=== PATIENT | male | born 1980 | race Caucasian/White ===

== ENCOUNTER 2020-11-26 13:44 | Inpatient (IN) | payer OTHER ==
[~2020-11-26] VITALS: Ht 188 cm; Wt 112.1 kg
[2020-11-26 13:53] VITALS: BP 167/110
[2020-11-26] MEDS ORDERED: KLONOPIN1 MG (13:55)
[2020-11-26] MEDS ORDERED: GRALISE600 MG PO (13:55)
[2020-11-26 16:05] LABS: HEMATOCRIT 40.7 % (42.0-52.0); HEMOGLOBIN 14.2 gm/dL (14.0-18.0); MCHC 34.9 g/dL (28.0-37.0); MCV 88.7 fL (80.0-100.0); MPV 6.8 fl. (7.2-11.1); NUCLEATED RBCS 0 /100WBC; PLATELET COUNT* 206 thou/uL (150-400); RBC 4.59 mil/uL (4.50-6.00); RDW-CV 13.4 % (10.5-14.5); WBC 16.8 thou/uL (4.0-11.0)
[2020-11-26 16:12] LABS: CALCIUM 8.8 mg/dL (8.5-10.1); CREATININE 0.9 mg/dL (0.6-1.3); POTASSIUM 3.1 mmol/L (3.5-5.1)
[2020-11-26 16:16] LABS: ALBUMIN 3.7 g/dL (3.4-5.0)
[2020-11-26 16:36] LABS: ABSOLUTE LYMPHOCYTES 1.5 thou/uL (0.8-5.3); ABSOLUTE MONOCYTES 0.7 thou/uL (0.0-1.2); ABSOLUTE NEUTROPHILS 14.6 thou/uL (1.6-8.1); PLATELET ESTIMATE ADEQUATE
[2020-11-26 19:10] LABS: CALCIUM 8.3 mg/dL (8.5-10.1); POTASSIUM 3.3 mmol/L (3.5-5.1)
[2020-11-26 19:14] LABS: MAGNESIUM 2.1 mg/dL (1.8-2.4); PHOSPHORUS* 2.5 mg/dL (2.5-4.9)
[2020-11-26 19:27] LABS: AMP/METHAMP Negative (Negative); BARBITURATES Negative (Negative); BENZODIAZEPINES Negative (Negative); COCAINE Negative (Negative); METHADONE Negative (Negative); OPIATES Negative (Negative); PCP Negative (Negative); THC POSITIVE (Negative)
[2020-11-26 19:49] VITALS: BP 141/70
[2020-11-26 20:00] VITALS: BP 156/80
--- NOTE | 2020-11-26 20:00 | NUR ---
RECEIVED REPORT FROM ER AND TO ROOM. LT FOREARM, WRIST AND HAND RED, EDEMATOUS AND PAINFUL. UNABLE TO MAKE A FIST. STRONG RADIAL PULSE AND CAPILLARY REFILL. ENCOURAGED TO ELEVATE. IV FLUIDS INFUSING. ORIENTED TO ROOM AND CALL LIGHT. SEE ADMISSION ASSESSMENT AND HX.
[2020-11-27 04:55] LABS: ABSOLUTE BASOPHILS 0.1 thou/uL (0.0-0.2); ABSOLUTE EOSINOPHILS 0.1 thou/uL (0.0-0.7); ABSOLUTE LYMPHOCYTES 1.7 thou/uL (0.8-5.3); ABSOLUTE MONOCYTES 0.9 thou/uL (0.0-1.2); BASOPHILS 0.7 %; EOSINOPHILS 0.4 %; HEMATOCRIT 36.6 % (42.0-52.0); HEMOGLOBIN 12.5 gm/dL (14.0-18.0); LYMPHOCYTES 12.3 %; MCH 30.7 pg (26.0-34.0); MCHC 34.2 g/dL (28.0-37.0); MCV 89.6 fL (80.0-100.0); MONOCYTES 6.7 %; MPV 6.8 fl. (7.2-11.1); NUCLEATED RBCS 0 /100WBC; PLATELET COUNT* 187 thou/uL (150-400); POLYS 79.9 %; RBC 4.09 mil/uL (4.50-6.00); RDW-CV 13.8 % (10.5-14.5); WBC 13.8 thou/uL (4.0-11.0)
[2020-11-27 05:03] LABS: CALCIUM 7.9 mg/dL (8.5-10.1); CREATININE 0.8 mg/dL (0.6-1.3); POTASSIUM 3.6 mmol/L (3.5-5.1)
--- NOTE | 2020-11-27 05:53 | NUR ---
AWAKE MOST OF NIGHT. PAIN INTO LT ARM REMAINS BUT TOLERABLE. PAIN MEDS GIVEN WITH LT ARM ELEVATED. PT DRINKING LG AMT OF WATER. INDEPENDENT BRP WITH STEADY GAIT. HS GOALS OF REST AND SAFETY ACHIEVED.
[2020-11-27 08:00] VITALS: BP 131/86
--- NOTE | 2020-11-27 10:03 | NUR ---
CM ASSESSMENT: PT A&O, INDEPENDENT WITH ADL'S, ACTIVE, AND WORKS [employer]. PT USES 0 DME. REVIEW OF PT'S CHART INFORMS THAT THE PT IS UNINSURED. PT CONFIRMS THIS. CM PROVIDED PT WITH COMMUNITY RESOURCE LIST AND INFO FOR [facility] AND [facility]. CM WILL REMAIN AVAILABLE TO ASSIST AND FOLLOW NEEDED.
[2020-11-27 16:00] VITALS: BP 181/115
[2020-11-27 19:50] VITALS: BP 144/95
--- NOTE | 2020-11-27 19:50 | NUR ---
PT RESTING ON BED UA SENT TO LAB FOR TEST. VSS AFEBRILE. BP RUNS A LITTLE ELEVATED. PT STATES HE FEEL GOOD NO HEADACHES, OR VISION CHANGES. PT UP AMBULATORY TO THE BATHROOM. SWELLING IN LEFT ARM IS DOWN A LITTLE BIT. WILL CONTINUE TO MONITOR PLAN OF CARE.
--- NOTE | 2020-11-28 04:38 | NUR ---
PT SLEPT MOST OF SHIFT. ASSESSMENT DOCUMENTED. MEDS GIVEN PER E-MAR. IV PATENT. PAIN MEDS GIVEN PER E-MAR WITH SOME RELIEF. PT UP INDEPENDENTLY TO BATHROOM. PT ABLE TO MAKE NEEDS KNOWN. WILL CONTINUE WITH PLAN OF CARE.
[2020-11-28 05:12] LABS: HEMATOCRIT 36.7 % (42.0-52.0); HEMOGLOBIN 12.7 gm/dL (14.0-18.0); MCH 30.8 pg (26.0-34.0); MCHC 34.5 g/dL (28.0-37.0); MCV 89.2 fL (80.0-100.0); MPV 6.8 fl. (7.2-11.1); RBC 4.11 mil/uL (4.50-6.00); RDW-CV 13.5 % (10.5-14.5); WBC 11.5 thou/uL (4.0-11.0)
[2020-11-28 05:21] LABS: ALBUMIN 2.7 g/dL (3.4-5.0); CALCIUM 8.3 mg/dL (8.5-10.1); CREATININE 0.8 mg/dL (0.6-1.3); POTASSIUM 3.8 mmol/L (3.5-5.1); TOTAL BILIRUBIN 0.5 mg/dL (<0.1-1.0); TOTAL PROTEIN 6.9 g/dL (6.4-8.2)
[2020-11-28 08:10] VITALS: BP 116/60
[2020-11-28 12:00] VITALS: BP 147/96
[2020-11-28 16:00] VITALS: BP 109/76
--- NOTE | 2020-11-28 19:09 | NUR ---
PATIENT RESTING IN BED. PATIENT IS UP AD DEON IN ROOM. PATIENT HAD MRI THIS AM WITHOUT INCIDENT. PATIENT HAD NEW IV PLACED TO RIGHT FOREARM WITHOUT DIFFICULTY. PATIENT HAS GOOD APPETITE. PATIENT HAS COMPLAINTS OF PAIN TO LEFT HAND, TREATED ADEQUATLEY WITH MEDICATION. PATIENT DENIES ANY NEEDS AT THIS TIME. CALL LIGHT WITHIN REACH.
[2020-11-28 19:40] VITALS: BP 139/90
[2020-11-29 04:38] LABS: HEMATOCRIT 35.5 % (42.0-52.0); HEMOGLOBIN 12.3 gm/dL (14.0-18.0); MCH 31.2 pg (26.0-34.0); MCHC 34.7 g/dL (28.0-37.0); MCV 90.1 fL (80.0-100.0); MPV 6.9 fl. (7.2-11.1); RBC 3.94 mil/uL (4.50-6.00); RDW-CV 13.6 % (10.5-14.5); WBC 8.7 thou/uL (4.0-11.0)
[2020-11-29 05:00] LABS: ALBUMIN 2.4 g/dL (3.4-5.0); CALCIUM 8.2 mg/dL (8.5-10.1); CREATININE 0.7 mg/dL (0.6-1.3); MAGNESIUM 2.2 mg/dL (1.8-2.4); POTASSIUM 3.6 mmol/L (3.5-5.1); TOTAL BILIRUBIN 0.3 mg/dL (<0.1-1.0); TOTAL PROTEIN 6.4 g/dL (6.4-8.2)
--- NOTE | 2020-11-29 05:02 | NUR ---
PT SLEPT MOST OF SHIFT. ASSESSMENT DOCUMENTED. MEDS GIVEN PER E-MAR. IV PATENT. PAIN MEDS GIVEN PER E-MAR WITH SOME RELIEF. PT INDEPENDENT IN ROOM AND ABLE TO MAKE NEEDS KNOWN. WILL CONTINUE WITH PLAN OF CARE.
[2020-11-29 05:05] LABS: PREALBUMIN 10.6 mg/dL (18.0-35.7)
[2020-11-29 08:30] VITALS: BP 169/102
[2020-11-29 16:00] VITALS: BP 155/103
--- NOTE | 2020-11-29 19:58 | NUR ---
I ASSUMED CARE OF THE PATIENT AT 0700. HE IS ALERT AND ORIENTED X4 AND IS UP AD DEON IN THE ROOM. BED IS IN THE LOW LOCKED POSITION AND CALL LIGHT IS IN REACH. PATIENT NEEDS ARE MET DURING HOURLY ROUNDING AND PAIN IS MANAGED WITH PRN MEDS. HE HOPES TO GO HOME ON MONDAY AND HIS BOSS WITH COME AND GET HIM. WILL CONTINUE TO MONITOR.
[2020-11-29 20:00] VITALS: BP 172/106
[2020-11-30 03:56] LABS: HEMATOCRIT 36.7 % (42.0-52.0); HEMOGLOBIN 12.6 gm/dL (14.0-18.0); MCH 30.6 pg (26.0-34.0); MCHC 34.2 g/dL (28.0-37.0); MCV 89.5 fL (80.0-100.0); MPV 6.2 fl. (7.2-11.1); RBC 4.1 mil/uL (4.50-6.00); RDW-CV 13.9 % (10.5-14.5); WBC 7.7 thou/uL (4.0-11.0)
[2020-11-30 04:40] LABS: ALBUMIN 2.5 g/dL (3.4-5.0); CALCIUM 8.4 mg/dL (8.5-10.1); CREATININE 0.9 mg/dL (0.6-1.3); MAGNESIUM 2.3 mg/dL (1.8-2.4); POTASSIUM 3.8 mmol/L (3.5-5.1); TOTAL BILIRUBIN 0.3 mg/dL (<0.1-1.0); TOTAL PROTEIN 6.8 g/dL (6.4-8.2)
[2020-11-30 05:11] VITALS: BP 168/106
[2020-11-30 06:28] VITALS: BP 129/71
[2020-11-30 08:01] VITALS: BP 156/99
--- NOTE | 2020-11-30 14:20 | NUR ---
PLAN OF CARE: PHYSICIAN INFORMS THAT PT WILL NEED TO REMAIN INPT HERE UNTIL IV ABT'S HAVE BEEN COMPLETED (Monday12/02/20), PT IS UNINSURED. PT MAY NEED ASSISTANCE WITH OTHER MEDICATIONS AT D/C IF ORDERED. CM PROVIDED PT WITH [facility] AND [facility] PLAN INFO. CM WILL REMAIN AVAILABLE TO ASSIST AND FOLLOW NEEDED.
[2020-11-30 20:00] VITALS: BP 194/110
--- NOTE | 2020-12-01 02:40 | NUR ---
PT ALERT ORIENTED. UP AD DEON IN ROOM. HYDROCODONE AND FENTYNEL GIVEN FOR PAIN. MS STATUS. POSSIBLE DC IN THE AFTERNOON.
[2020-12-01 04:27] LABS: HEMATOCRIT 41.6 % (42.0-52.0); HEMOGLOBIN 14.5 gm/dL (14.0-18.0); MCH 31.1 pg (26.0-34.0); MCHC 34.8 g/dL (28.0-37.0); MCV 89.3 fL (80.0-100.0); MPV 6.2 fl. (7.2-11.1); RBC 4.65 mil/uL (4.50-6.00); RDW-CV 13.1 % (10.5-14.5); WBC 8.4 thou/uL (4.0-11.0)
[2020-12-01 04:37] LABS: ALBUMIN 3.2 g/dL (3.4-5.0); CALCIUM 8.7 mg/dL (8.5-10.1); MAGNESIUM 2.3 mg/dL (1.8-2.4); POTASSIUM 4.1 mmol/L (3.5-5.1); TOTAL BILIRUBIN 0.3 mg/dL (<0.1-1.0); TOTAL PROTEIN 8.1 g/dL (6.4-8.2)
[2020-12-01 06:16] VITALS: BP 175/120
[2020-12-01 08:00] VITALS: BP 148/100
[2020-12-01 08:07] LABS: HEPATITIS B SURFACE AG Negative (Negative)
[2020-12-01 12:00] VITALS: BP 128/71
--- NOTE | 2020-12-01 13:53 | NUR ---
PLAN OF CARE: PHYSICIAN INFORMS OF PLAN FOR THE PT TO POSSIBLY D/C TOMORROW. CM PROVIDED PT WITH COMMUNITY CLINIC RESOURCE LIST. PT MAY ALSO NEED ASSISTANCE WITH MEDICATIONS AT D/C. CM WILL REMAIN AVAILABLE TO ASSIST AND FOLLOW NEEDED.
[2020-12-01 16:00] VITALS: BP 146/93
--- NOTE | 2020-12-01 18:18 | NUR ---
PT HAS ONE MORE DAY OF IV ANTIBIOTCS FOR THE CELLULITIS IN HIS LEFT ARM AND HAND. PT CALLED OUT AND SAID HIS LEFT HAND IS NUMB. PT THEN STATED IT HAS BEEN FOR ABOUT 6 DAYS, NOW. BLOOD PRESSURE DOWN NOW. WILL CONTINUE TO MONITOR PLAN OF CARE.
[2020-12-01 20:29] VITALS: BP 138/93
[2020-12-02 04:53] LABS: HEMATOCRIT 41.9 % (42.0-52.0); HEMOGLOBIN 14.6 gm/dL (14.0-18.0); MCH 31.2 pg (26.0-34.0); MCHC 34.9 g/dL (28.0-37.0); MCV 89.4 fL (80.0-100.0); MPV 6.2 fl. (7.2-11.1); RBC 4.69 mil/uL (4.50-6.00); RDW-CV 13.5 % (10.5-14.5); WBC 7.9 thou/uL (4.0-11.0)
[2020-12-02 05:35] LABS: ALBUMIN 2.9 g/dL (3.4-5.0); CREATININE 0.9 mg/dL (0.6-1.3); MAGNESIUM 2.4 mg/dL (1.8-2.4); POTASSIUM 4.7 mmol/L (3.5-5.1); TOTAL BILIRUBIN 0.3 mg/dL (<0.1-1.0); TOTAL PROTEIN 7.6 g/dL (6.4-8.2)
--- NOTE | 2020-12-02 06:47 | NUR ---
PT IS ABLE TO COMMUNICATE HIS NEEDS TO STAFF EFFECTIVELY. CURRENT PAIN MEDICATION REGIMEN HAS BEEN ADEQUATE FOR CONTROLLING HIS PAIN UP TO THIS TIME. PT STATES HE FREQUENTY FEELS VERY ANXIOUS; MEDICATIONS GIVEN ORDERED. POSSIBLE DISCHARGE TODAY.
[2020-12-02 08:00] VITALS: BP 149/101
--- NOTE | 2020-12-02 11:06 | NUR ---
PT LEFT AMA SALINE LOCK REMOVED HUB INTACT. PT LEFT AMBULATORY.
--- NOTE | 2020-12-02 12:21 | NUR ---
CM ACCOMPANIED MD DR. AGNES GODWIN THE POC AND PT CONT NEED FOR IBV ABX. PT INDICATED HE MADE HIS DECISION TO LEAVE TODAY HE "NEED TO GO BACK TO WORK." PT D/C TO [facility] WITH [facility]ENN[facility]ER. PT LEFT AGAINST MEDICAL ADVICE.
== END 2020-12-02 10:57 | disposition left against medical advice (07) | DRG 603 ==
LOC: M.ERS 13:44 → M.TBA-ER 16:34 → M.2W 20:29
PROVIDERS: Internal Medicine; Physician Assistant; ADMIT Internal Medicine; ATTEND Internal Medicine
DX: L03.113 Cellulitis of right upper limb (principal); L03.114 Cellulitis of left upper limb; F17.210 Nicotine dependence, cigarettes, uncomplicated; F10.20 Alcohol dependence, uncomplicated; F41.9 Anxiety disorder, unspecified; F12.90 Cannabis use, unspecified, uncomplicated; B96.89 Other specified bacterial agents as the cause of diseases classified elsewhere; Z20.822 Contact with and (suspected) exposure to COVID-19; Z53.29 Procedure and treatment not carried out because of patient's decision for other reasons; Z79.899 Other long term (current) drug therapy